=== PATIENT | male | born 1975 | race Caucasian/White ===

== ENCOUNTER 2021-12-10 16:00 | Emergency (ER) | payer OTHER | END 2021-12-10 18:46 | disposition home or self-care (01) | LOC: JP.ED 16:00 | DX: R19.7 Diarrhea, unspecified (principal); J00 Acute nasopharyngitis [common cold]; Z88.8 Allergy status to other drugs, medicaments and biological substances; Z79.899 Other long term (current) drug therapy; Z20.822 Contact with and (suspected) exposure to COVID-19 | CPT/HCPCS: 99284; U0002 ==